=== PATIENT | female | born 1995 | race African-American/Black ===

== ENCOUNTER 2019-02-07 04:27 | Emergency (ER) | payer MEDICARE, MEDICAID ==
[~2019-02-07] VITALS: Ht 170.2 cm; Wt 79.8 kg
[2019-02-07 04:41] VITALS: BP 151/105
[2019-02-07 04:44] LABS: URINE BLOOD 1+ (Negative); URINE CLARITY CLOUDY; URINE COLOR YELLOW; URINE GLUCOSE-RANDOM NEGATIVE (Negative); URINE KETONES 2+ (Negative); URINE LEUKOCYTES-REFLEX 1+ (Negative); URINE NITRITE-REFLEX NEGATIVE (Negative); URINE PROTEIN 2+ (Negative); URINE SPECIFIC GRAVITY >= 1.030 (1.005-1.030)
[2019-02-07 04:45] LABS: ICTOTEST (BILI CONFIRMATORY) Negative (Negative); URINE BILIRUBIN 1+ (Negative)
[2019-02-07] MEDS ORDERED: PRENATAL PO (04:47)
[2019-02-07 05:00] LABS: BACTERIA-REFLEX >30 Many /HPF (None Seen); CASTS None Seen /LPF (None Seen); CRYSTALS None Seen /LPF (None Seen); MUCUS >6 Heavy strn/LPF (None Seen); SQUAMOUS >10 Many /LPF (0-3); TRANSITIONAL EPITHEL CELL 4-10 Moderate /LPF (None Seen); WBC CLUMPS Few (None Seen)
== END 2019-02-07 05:06 | disposition home or self-care (01) ==
LOC: M.ERS 04:27
PROVIDERS: Family Medicine
DX: F41.9 Anxiety disorder, unspecified (principal)